=== PATIENT | male | born 1985 | race American Indian/Alaskan Native ===

== ENCOUNTER 2017-03-22 15:11 | Observation (INO) | payer OTHER ==
[2017-03-22 15:19] VITALS: RESP 20
[2017-03-22] MEDS ORDERED: Sodium Chloride 0.9% 1,000 ML IV ONE ×2 (15:24→16:20)
[2017-03-22] MEDS ORDERED: Aluminum Hydroxide/Magnesium Hydroxide Susp (30 mL) PO STA (15:24)
--- NOTE | 2017-03-22 15:31 | C.PDOC ---
History Of Present Illness 32 y/o male presents to ED with complaint of diffuse abdominal pain, associated with vomiting, worsening for the last 3 days. Patient's fiance at bedside states he has had this pain "more often than not" for the last 9 years. Patients reports past diagnosis of gastritis. Denies any medications, other significant past medical history, or abdominal surgical history. Patient states he drinks alcohol 2x per week; fiance states he drinks up to a pint of alcohol at a time. Denies any other drug use. Time Seen by Provider: 03/22/17 15:13 Chief Complaint (Nursing): Abdominal Pain History Per: Patient, Family History/Exam Limitations: no limitations Onset/Duration Of Symptoms: Days Current Symptoms Are (Timing): Still Present Location Of Pain/Discomfort: Diffuse Quality Of Discomfort: "Pain" Associated Symptoms: Vomiting. denies: Fever, Diarrhea, Urinary Symptoms Recent travel outside of the [place]: No Past Medical History Reviewed: Historical Data, Nursing Documentation, Vital Signs Vital Signs: Last Vital Signs Temp 98.1 F 03/23/17 07:00 Pulse 68 03/23/17 07:00 Resp 20 03/23/17 07:00 BP 112/69 03/23/17 07:00 Pulse Ox 100 03/23/17 07:00 - Medical History PMH: Gastritis Family History: States: Unknown Family Hx - Social History Hx Alcohol Use: Yes Hx Substance Use: Yes - Immunization History Hx Tetanus Toxoid Vaccination: No Hx Influenza Vaccination: No Hx Pneumococcal Vaccination: No Review Of Systems Except As Marked, All Systems Reviewed And Found Negative. Constitutional: Negative for: Fever, Chills Cardiovascular: Negative for: Chest Pain Respiratory: Negative for: Cough, Shortness of Breath, Wheezing Gastrointestinal: Positive for: Vomiting, Abdominal Pain. Negative for: Diarrhea Skin: Negative for: Rash Physical Exam - Physical Exam Appears: Other (appears to be in pain, tearful) Skin: Warm, Dry Head: Atraumatic, Normacephalic Chest: Symmetrical Cardiovascular: Rhythm Regular Respiratory: Normal Breath Sounds, No Rales, No Rhonchi, No Wheezing Gastrointestinal/Abdominal: Soft, Tenderness (diffuse abdominal tenderness, nonfocal), No Guarding, No Rebound Back: Normal Inspection Extremity: Normal ROM, Capillary Refill (< 2 sec. ) Neurological/Psych: Oriented x3, Normal Speech, Normal Cognition ED Course And Treatment - Laboratory Results Result Diagrams: 03/23/17 07:31 03/23/17 07:31 O2 Sat by Pulse Oximetry: 99 (RA) Pulse Ox Interpretation: Normal - CT Scan/US CT Abdomen/Pelvis Other Rad Studies (CT/US): Read By Radiologist, Radiology Report Reviewed CT/US Interpretation: IMPRESSION: Examination limited due to paucity of intra- abdominal and intrapelvic fat as well as lack of oral contrast. The appendix is not definitively visualized. Thin caliber tubular air-filled structure partially imaged in the right lower quadrant presumed to reflect the appendix. If indeed this is the appendix it is within normal limits. Progress Note: Viscous lidocaine, Maalox, Pepcid, Toradol, Zofran, and IVFs ordered. Labs ordered/reviewed. Disposition - Disposition Disposition: HOSPITALIZED Disposition Time: 20:14 Condition: STABLE - Clinical Impression Clinical Impression: Abdominal pain, Nausea, Vomiting - Scribe Statement The provider has reviewed the documentation as recorded by the Balaji Harris Provider Scribe Attestation: All medical record entries made by the Balaji were at my direction and personally dictated by me. I have reviewed the chart and agree that the record accurately reflects my personal performance of the history, physical exam, medical decision making, and the department course for this patient. I have also personally directed, reviewed, and agree with the discharge instructions and disposition.
[2017-03-22] MEDS ORDERED: Sodium Chloride 0.9% 1,000 ML ONE ×2 (15:34→16:35)
[2017-03-22] MEDS ORDERED: Aluminum Hydroxide/Magnesium Hydroxide Susp (30 mL) ONE (15:34)
[2017-03-22 15:43] LABS: VENOUS BLOOD GAS PCO2 46 mmHg (40-60)
[2017-03-22 15:44] LABS: BASO % 0.7 % (0.0-2.0); EOS % 0.3 % (0.0-4.0); HEMATOCRIT 44.9 % (35.0-51.0); LYMPH # 1.4 K/uL (1.0-4.3); LYMPH % 21.5 % (20.0-40.0); MEAN CORPUSCULAR HGB CONC 33.4 g/dL (33.0-37.0); MEAN PLATELET VOLUME 7.3 fL (7.2-11.7); MONO # 0.7 K/uL (0.0-0.8); MONO % 10.8 % (0.0-10.0); NRBC % 0.1 % (0.0-2.0); RED CELL DISTRIBUTION WIDTH 13.7 % (11.5-14.5); WHITE BLOOD COUNT 6.5 K/uL (4.8-10.8)
[2017-03-22 15:51] LABS: CHLORIDE 98 mmol/L (98-107); SODIUM 136 mmol/L (132-148)
[2017-03-22 15:52] LABS: POTASSIUM 4.6 mmol/L (3.6-5.2)
[2017-03-22 15:53] LABS: GFR AFRICAN-AMERICAN > 60
[2017-03-22 15:54] LABS: ALB/GLOB RATIO 1.2 (1.0-2.1); ALKALINE PHOSPHATASE 76 U/L (38-126); ALT/SGPT 26 U/L (21-72); AST/SGOT 31 U/L (17-59); BILIRUBIN,TOTAL 0.7 mg/dL (0.2-1.3); BLOOD UREA NITROGEN 8 mg/dL (9-20); CALCIUM 9.4 mg/dl (8.6-10.4); CARBON DIOXIDE 28 mmol/L (22-30); GLUCOSE,RANDOM 120 mg/dL (75-110); TOTAL PROTEIN 8.4 g/dL (6.3-8.3)
[2017-03-22 15:55] LABS: ALCOHOL SERUM < 10 mg/dl (0-10)
[2017-03-22] MEDS ORDERED: DiphenhydrAMINE 50 mg/ml Inj IVP STA (16:20)
[2017-03-22] MEDS ORDERED: DiphenhydrAMINE 50 mg/ml Inj ONE (16:31)
[2017-03-22] MEDS ORDERED: Iohexol 350mg/ml 100 ML ONE (16:49)
[2017-03-22 17:23] LABS: RBC URINE 2 /hpf (0-3); URINE BACTERIA RARE (<OCC); URINE BILIRUBIN NEGATIVE (NEGATIVE); URINE BLOOD NEGATIVE (NEGATIVE); URINE COLOR Yellow (YELLOW); URINE GLUCOSE (UA) NORMAL (Normal); URINE KETONE TRACE mg/dL (NEGATIVE); URINE LEUKOCYTE ESTERASE NEG Leu/uL (Negative); URINE PROTEIN 1+ mg/dL (NEGATIVE); URINE UROBILINOGEN NORMAL mg/dL (0.2-1.0); WBC URINE 3 /hpf (0-5)
--- NOTE | 2017-03-22 17:56 | CT ---
PROCEDURE: CT Abdomen and Pelvis with contrast HISTORY: abdominal pain COMPARISON: None available. TECHNIQUE: Contrast dose: 100 mL Omnipaque 320 Radiation dose: Total exam DLP = 346.33 mGy-cm. This CT exam was performed using one or more of the following dose reduction techniques: Automated exposure control, adjustment of the mA and/or kV according to patient size, and/or use of iterative reconstruction technique. FINDINGS: LOWER THORAX: No visible consolidation, pleural effusion, or pneumothorax. Small hiatal hernia. LIVER: Unremarkable. GALLBLADDER AND BILE DUCTS: Unremarkable. PANCREAS: Unremarkable. SPLEEN: Unremarkable. ADRENALS: Unremarkable. KIDNEYS AND URETERS: The kidneys enhance symmetrically. No evidence of hydronephrosis or obstructing calculus. VASCULATURE: No aortic aneurysm. BOWEL: Stomach is nondistended. Lack of oral contrast limits evaluation for bowel pathology. Bowel loops appear within normal limits of caliber without evidence of obstruction. APPENDIX: The appendix is not definitively visualized. Thin caliber tubular air-filled structure partially imaged in the right lower quadrant presumed to reflect the appendix. If indeed this is the appendix it is within normal limits. PERITONEUM: No significant free fluid. No definite free air. LYMPH NODES: No bulky adenopathy. BLADDER: Decompressed urinary bladder precludes evaluation. REPRODUCTIVE: Unremarkable. BONES: Partially imaged left femur metallic hardware. No acute osseous abnormality is detected. OTHER FINDINGS: None. IMPRESSION: Examination limited due to paucity of intra-abdominal and intrapelvic fat as well as lack of oral contrast. The appendix is not definitively visualized. Thin caliber tubular air-filled structure partially imaged in the right lower quadrant presumed to reflect the appendix. If indeed this is the appendix it is within normal limits. Additional findings as above.
[2017-03-22] MEDS ORDERED: [UNRECOGNIZED DRUG - OTHER] IV SCH (21:45)
[2017-03-22] MEDS ORDERED: D5W IV SCH (21:45)
[2017-03-22] MEDS ORDERED: MULTIVITAMIN IV SCH (21:45)
[2017-03-22] MEDS ORDERED: POTASSIUM CH IV SCH (21:45)
--- NOTE | 2017-03-22 22:38 | CP.PCM.HP ---
<Jony Monroy - Last Filed: 03/22/17 22:29> History of Present Illness - History of Present Illness History of Present Illness: CC: "abdominal pain" 32 M with PMH of gastritis presents to [facility] ED with a complaint of intractable abdominal pain. Patient states he has had the pain for about 2 days now. Patient drank alcohol 3 days again but besides that has not done anything differently. Patient has had the pain in the past multiple times where he has [place] [facility] [place] Patient also had an episode 2 weeks but the pain was not as severe so he just waited until his symptoms resolved. Patient stated that this time the pain was a sudden onset and has gotten worse over the 2 days. Patient has associated nausea and vomiting. He rates the pain 10/10 in severity. He describes the pain as constant and sharp, diffusely located through his abdomen without radiation. Patient denies any specific exacerbating or alleviating factors. Patient does not follow with anyone as outpatient. He has not seen a Court [facility] [facility] in the past. He also has never had an EGD. Admits to nausea/vomiting, hematemesis, melena, hematochezia, decreased appetitie. Denies fever/chills, cp, SOB, palpitations, fatigue, wekaness, dizziness/lightheadedness, vertigo, syncope, change in stool, constipation, incontinence, urinary symptoms. PMD: None PMH: Gastritis Meds: Denies Allergy: Ibuprofen PSH: Denies Hosp: Denies FH: Gastritis Social: [place], smokes 1/2 pack per days for years, drinks 2 nights per week - amount varies, denies illicit drug use Present on Admission - Present on Admission Any Indicators Present on Admission: No History of DVT/PE: No History of Uncontrolled Diabetes: No Urinary Catheter: No Decubitus Ulcer Present: No Review of Systems - Review of Systems All systems: reviewed and no additional remarkable complaints except (as per HPI ) Past Patient History - Past Social History Smoking Status: Heavy Smoker > 10 Cigarettes Daily - GASTROINTESTINAL Hx Gastritis: Yes - PSYCHIATRIC Hx Substance Use: Yes Meds Allergies/Adverse Reactions: Allergies Allergy/AdvReac Type Severity Reaction Status Date / Time ibuprofen [From Motrin] Allergy Verified 03/22/17 15:26 Physical Exam - Constitutional Appears: No Acute Distress - Head Exam Head Exam: ATRAUMATIC, NORMOCEPHALIC - Eye Exam Eye Exam: EOMI, Normal appearance Pupil Exam: PERRL - ENT Exam ENT Exam: Mucous Membranes Dry - Neck Exam Neck exam: Positive for: Normal Inspection - Respiratory Exam Respiratory Exam: Clear to Auscultation Bilateral, NORMAL BREATHING PATTERN - Cardiovascular Exam Cardiovascular Exam: REGULAR RHYTHM, +S1, +S2 - GI/Abdominal Exam GI & Abdominal Exam: Normal Bowel Sounds, Soft, Tenderness (diffusely). absent : Distended, Firm, Guarding, Rebound - Extremities Exam Extremities exam: Positive for: normal capillary refill, pedal pulses present. Negative for: calf tenderness, pedal edema, tenderness - Back Exam Back exam: absent: CVA tenderness (L), CVA tenderness (R) - Neurological Exam Neurological exam: Alert, CN II-XII Intact, Oriented x3 - Psychiatric Exam Psychiatric exam: Anxious - Skin Skin Exam: Dry, Intact, Normal Color, Warm Results - Vital Signs Recent Vital Signs: Last Vital Signs Temp 98.3 F 03/22/17 21:12 Pulse 67 03/22/17 21:12 Resp 20 03/22/17 21:12 BP 120/87 03/22/17 21:12 Pulse Ox 99 03/22/17 21:12 - Labs Result Diagrams: 03/22/17 15:37 03/22/17 15:37 Assessment & Plan - Assessment and Plan (Free Text) Plan: 1. Gastritis Med/Surg NPO D5 1/2NS with KCL and MVM 125 cc/hr Protonix 40 mg IVP Q12H Sulcrafate 1 gm PO BID Zofran 4 mg IVP Q6H PRN FOBT I's & O's f/u daily labs 2. Prophylactic Measures Protonix 40 mg IVP Q12H SCDs <Zeferino Maxwell P - Last Filed: 03/27/17 19:42> Results - Vital Signs Recent Vital Signs: Last Vital Signs Temp 98.1 F 03/23/17 07:00 Pulse 68 03/23/17 07:00 Resp 20 03/23/17 07:00 BP 112/69 03/23/17 07:00 Pulse Ox 99 03/23/17 12:16 - Labs Result Diagrams: 03/23/17 07:31 03/23/17 07:31 Attending/Attestation - Attestation I have personally seen and examined this patient.: Yes I have fully participated in the care of the patient.: Yes I have reviewed all pertinent clinical information: Yes
[2017-03-23 07:43] LABS: BASO % 0.5 % (0.0-2.0); EOS % 0.3 % (0.0-4.0); HEMATOCRIT 38.5 % (35.0-51.0); LYMPH # 3.2 K/uL (1.0-4.3); LYMPH % 32.5 % (20.0-40.0); MEAN CELL VOLUME 89.6 fL (80.0-94.0); MEAN CORPUSCULAR HEMOGLOBIN 30.3 pg (27.0-31.0); MEAN CORPUSCULAR HGB CONC 33.9 g/dL (33.0-37.0); MEAN PLATELET VOLUME 7.9 fL (7.2-11.7); MONO # 1.2 K/uL (0.0-0.8); MONO % 12.1 % (0.0-10.0); RED CELL DISTRIBUTION WIDTH 13.5 % (11.5-14.5)
[2017-03-23 07:49] LABS: INR 1.2
[2017-03-23 07:55] LABS: WHITE BLOOD COUNT 9.9 K/uL (4.8-10.8)
[2017-03-23 08:14] LABS: CHLORIDE 102 mmol/L (98-107); POTASSIUM 3.4 mmol/L (3.6-5.2); SODIUM 136 mmol/L (132-148)
[2017-03-23 08:16] LABS: BILIRUBIN,TOTAL 0.7 mg/dL (0.2-1.3); GFR AFRICAN-AMERICAN > 60
[2017-03-23 08:17] LABS: ALB/GLOB RATIO 1.1 (1.0-2.1); ALKALINE PHOSPHATASE 62 U/L (38-126); ALT/SGPT 24 U/L (21-72); AST/SGOT 21 U/L (17-59); BLOOD UREA NITROGEN 6 mg/dL (9-20); CARBON DIOXIDE 26 mmol/L (22-30); GLUCOSE,RANDOM 91 mg/dL (75-110); PHOSPHOROUS 3.1 mg/dL (2.5-4.5); TOTAL PROTEIN 6.7 g/dL (6.3-8.3)
[2017-03-23 08:18] LABS: CALCIUM 8.4 mg/dl (8.6-10.4); MAGNESIUM 1.9 mg/dL (1.6-2.3)
[2017-03-23 08:24] VITALS: BP 112/69; PULSE 68; TEMP 98.1
--- NOTE | 2017-03-23 09:21 | CP.PCM.PN ---
Subjective - Date & Time of Evaluation Date of Evaluation: 03/23/17 Time of Evaluation: 09:00 - Subjective Subjective: Hospitalist Progress Note (Patient was seen and examined at 9:00 AM 356 A ) Admitted night of 03/22/17 for intractable abdominal pain. History of drinking 1 pint of Vodka twice a week and smoking 1/2 pack a day. He had 1 pint of Vodka roughly 3 days ago and then his abdominal pain generalized associated with nausea/vomiting started. This has been a similar pattern in the past and [place] [facility] [place] He does not have a PMD and has not been evaluated by GI in the past Currently upon ROS: NO more abdominal pain NO n/v and is requesting food NO bowel movement past few days as he has not eaten Exam: Totaly unremarkable CT Abdomen/Pelvis: unremarkable given that it is limited by lack of PO contrast Extensive conversation with patient concerning his alcohol and tobacco use and how it was likely causing inflammation of his GI tract causing his symptoms Patient will be given liquids now and then soft diet for lunch and if tolerated will discharge to home Dietary Consult for education on Gastritis Diet Explained he will need to follow up with the [facility] for coordination of his medical care and through them, GI evaluation. Oscar Mccoy, D.O. [phone] Objective - Vital Signs/Intake and Output Vital Signs (last 24 hours): Temp Pulse Resp BP Pulse Ox 98.1 F 68 20 112/69 100 03/23/17 07:00 03/23/17 07:00 03/23/17 07:00 03/23/17 07:00 03/23/17 07:00 Intake and Output: 03/23/17 03/23/17 06:59 18:59 Intake Total 650 Balance 650 - Medications Medications: Current Medications Multivitamins/Vitamin C 10 ml/Potassium Chloride/Dextrose/Sod Cl 1,010 mls @ 125 mls/hr IV .BY DURATION [facility] Last Admin: 03/23/17 02:37 Dose: 125 mls/hr Potassium Chloride/Dextrose/Sod Cl (Potassium Chl 20 Meq In D5-1/2ns) 1,000 mls @ 125 mls/hr IV .BY DURATION [facility] Last Admin: 03/23/17 05:49 Dose: Not Given Potassium Chloride/Dextrose/Sod Cl (Potassium Chl 20 Meq In D5-1/2ns) 1,000 mls @ 125 mls/hr IV .BY DURATION [facility] Ondansetron HCl (Zofran Inj) 4 mg IVP Q6 PRN PRN Reason: Nausea/Vomiting Pantoprazole Sodium (Protonix Inj) 40 mg IVP Q12H [facility] Last Admin: 03/22/17 21:57 Dose: 40 mg Sucralfate (Carafate Tab) 1 gm PO BID [facility] Last Admin: 03/22/17 21:57 Dose: 1 gm - Labs Labs: 03/23/17 07:31 03/23/17 07:31 PT 13.4 SECONDS (9.7-12.2) H 03/23/17 07:31 INR 1.2 03/23/17 07:31 APTT 28 SECONDS (21-34) 03/23/17 07:31
[2017-03-23] MEDS ORDERED: Potassium Chloride 20 mEq ER Tab PO ONE (09:24)
[2017-03-23 12:16] VITALS: O2SAT 99
--- NOTE | 2017-03-23 15:01 | CP.PCM.DIS ---
<Vincent Segura - Last Filed: 03/23/17 15:11> Provider - Provider Date of Admission: 03/22/17 20:28 Attending physician: Zeferino Maxwell MD Consults: 1. Dietitian consult. Time Spent in preparation of Discharge (in minutes): 45 Hospital Course - Lab Results Lab Results: Most Recent Lab Values WBC 9.9 K/uL (4.8-10.8) D 03/23/17 07:31 RBC 4.30 Mil/uL (4.40-5.90) L 03/23/17 07:31 Hgb 13.0 g/dL (12.0-18.0) D 03/23/17 07:31 Hct 38.5 % (35.0-51.0) 03/23/17 07:31 MCV 89.6 fL (80.0-94.0) 03/23/17 07:31 MCH 30.3 pg (27.0-31.0) 03/23/17 07:31 MCHC 33.9 g/dL (33.0-37.0) 03/23/17 07:31 RDW 13.5 % (11.5-14.5) 03/23/17 07:31 Plt Count 341 K/uL (130-400) 03/23/17 07:31 MPV 7.9 fL (7.2-11.7) 03/23/17 07:31 Neut % (Auto) 54.6 % (50.0-75.0) 03/23/17 07:31 Lymph % (Auto) 32.5 % (20.0-40.0) 03/23/17 07:31 Logan % (Auto) 12.1 % (0.0-10.0) H 03/23/17 07:31 Eos % (Auto) 0.3 % (0.0-4.0) 03/23/17 07:31 Baso % (Auto) 0.5 % (0.0-2.0) 03/23/17 07:31 Neut # 5.4 K/uL (1.8-7.0) 03/23/17 07:31 Lymph # 3.2 K/uL (1.0-4.3) 03/23/17 07:31 Logan # 1.2 K/uL (0.0-0.8) H 03/23/17 07:31 Eos # 0.0 K/uL (0.0-0.7) 03/23/17 07:31 Baso # 0.0 K/uL (0.0-0.2) 03/23/17 07:31 PT 13.4 SECONDS (9.7-12.2) H 03/23/17 07:31 INR 1.2 03/23/17 07:31 APTT 28 SECONDS (21-34) 03/23/17 07:31 pO2 20 mm/Hg (30-55) L 03/22/17 15:40 VBG pH 7.40 (7.32-7.43) 03/22/17 15:40 VBG pCO2 46 mmHg (40-60) 03/22/17 15:40 VBG HCO3 25.5 mmol/L 03/22/17 15:40 VBG Total CO2 29.9 mmol/L (22-28) H 03/22/17 15:40 VBG O2 Sat (Calc) 33.1 % (40-65) L 03/22/17 15:40 VBG Base Excess 3.0 mmol/L (0.0-2.0) H 03/22/17 15:40 VBG Potassium 4.4 mmol/L (3.6-5.2) 03/22/17 15:40 Sodium 138.0 mmol/l (132-148) 03/22/17 15:40 Chloride 104.0 mmol/L (98-107) 03/22/17 15:40 Glucose 111 mg/dl (75-110) H 03/22/17 15:40 Lactate 1.6 mmol/L (0.7-2.1) 03/22/17 15:40 Sodium 136 mmol/L (132-148) 03/23/17 07:31 Potassium 3.4 mmol/L (3.6-5.2) L 03/23/17 07:31 Chloride 102 mmol/L (98-107) 03/23/17 07:31 Carbon Dioxide 26 mmol/L (22-30) 03/23/17 07:31 Anion Gap 11 (10-20) 03/23/17 07:31 BUN 6 mg/dL (9-20) L 03/23/17 07:31 Creatinine 0.8 MG/DL (0.8-1.5) 03/23/17 07:31 Est GFR ( Amer) > 60 03/23/17 07:31 Est GFR (Non-Af Amer) > 60 03/23/17 07:31 Random Glucose 91 mg/dL (75-110) 03/23/17 07:31 Calcium 8.4 mg/dl (8.6-10.4) L 03/23/17 07:31 Phosphorus 3.1 mg/dL (2.5-4.5) 03/23/17 07:31 Magnesium 1.9 mg/dL (1.6-2.3) 03/23/17 07:31 Total Bilirubin 0.7 mg/dL (0.2-1.3) 03/23/17 07:31 AST 21 U/L (17-59) 03/23/17 07:31 ALT 24 U/L (21-72) 03/23/17 07:31 Alkaline Phosphatase 62 U/L (38-126) 03/23/17 07:31 Total Protein 6.7 g/dL (6.3-8.3) 03/23/17 07:31 Albumin 3.6 g/dL (3.5-5.0) 03/23/17 07:31 Globulin 3.1 gm/dL (2.2-3.9) 03/23/17 07:31 Albumin/Globulin Ratio 1.1 (1.0-2.1) 03/23/17 07:31 Lipase 35 U/L (23-300) 03/22/17 15:37 Venous Blood Potassium 4.4 mmol/L (3.6-5.2) 03/22/17 15:40 Urine Color Yellow (YELLOW) 03/22/17 17:05 Urine Clarity Hazy (Clear) 03/22/17 17:05 Urine pH 6.0 (5.0-8.0) 03/22/17 17:05 Ur Specific Palmer 1.017 (1.003-1.030) 03/22/17 17:05 Urine Protein 1+ mg/dL (NEGATIVE) H 03/22/17 17:05 Urine Glucose (UA) Normal mg/dL (Normal) 03/22/17 17:05 Urine Ketones Trace mg/dL (NEGATIVE) 03/22/17 17:05 Urine Blood Negative (NEGATIVE) 03/22/17 17:05 Urine Nitrate Negative (NEGATIVE) 03/22/17 17:05 Urine Bilirubin Negative (NEGATIVE) 03/22/17 17:05 Urine Urobilinogen Normal mg/dL (0.2-1.0) 03/22/17 17:05 Ur Leukocyte Esterase Neg Jose/uL (Negative) 03/22/17 17:05 Urine WBC (Auto) 3 /hpf (0-5) 03/22/17 17:05 Urine RBC (Auto) 2 /hpf (0-3) 03/22/17 17:05 Urine Bacteria Rare (<OCC) 03/22/17 17:05 Hyaline Casts 3-5 /lpf (0-2) H 03/22/17 17:05 Urine Opiates Screen Negative (NEGATIVE) 03/22/17 17:05 Urine Methadone Screen Negative (NEGATIVE) 03/22/17 17:05 Ur Barbiturates Screen Negative (NEGATIVE) 03/22/17 17:05 Ur Phencyclidine Scrn Positive (NEGATIVE) 03/22/17 17:05 Ur Amphetamines Screen Negative (NEGATIVE) 03/22/17 17:05 U Benzodiazepines Scrn Negative (NEGATIVE) 03/22/17 17:05 U Oth Cocaine Metabols Negative (NEGATIVE) 03/22/17 17:05 U Cannabinoids Screen Positive (NEGATIVE) 03/22/17 17:05 Alcohol, Quantitative < 10 mg/dl (0-10) 03/22/17 15:37 - Hospital Course Hospital Course: Attending: Dr. Fauzia Mccoy Admit date: 03-22-17 DC date: 03-23-17 Consults: Dietitian Procedures none Complications none Discharge dx 1. Gastritis Stable upon discharge HPI: see H/p Lab : see lab data section Hospital course. This is a 32 yo male with no reported past medical hx presenting with 1. Gastritis -admitted to Med/Surg - made NPO>> transitioned to diet>>> tolerating well with no complaints -initially put on D5 1/2NS with KCL and MVM 125 cc/hr - Protonix 40 mg IVP Q12H - Sulcrafate 1 gm PO BID - Zofran 4 mg IVP Q6H PRN - FOBT was ordered - I's & O's -CT scan was ordered, which was unremarkable. 2. Prophylactic Measures Protonix 40 mg IVP Q12H SCDs On day of discharge, pt was feeling much better with no complaints and completely tolerating diet. Discharge instructions 1. Pt medically stable for discharge. Pt to fu in [facility]. Pt told to f/u. Number is [phone]. Pt should return if condition worsens. Pt counseled on gastritis diet. Discharge meds: 1. protonix 40 daily - Date & Time of H&P Date of H&P: 03/22/17 Time of H&P: 22:29 Discharge Exam - Head Exam Head Exam: ATRAUMATIC, NORMAL INSPECTION, NORMOCEPHALIC - Eye Exam Eye Exam: EOMI - ENT Exam ENT Exam: Mucous Membranes Moist - Neck Exam Neck exam: Full Rom, Normal Inspection - Respiratory Exam Respiratory Exam: NORMAL BREATHING PATTERN, UNREMARKABLE - Cardiovascular Exam Cardiovascular Exam: +S1, +S2 - GI/Abdominal Exam GI & Abdominal Exam: Normal Bowel Sounds, Unremarkable - Extremities Exam Extremities exam: full ROM, normal inspection - Neurological Exam Neurological exam: Alert, Oriented x3 - Psychiatric Exam Psychiatric exam: Normal Affect, Normal Mood - Skin Skin Exam: Dry, Intact, Normal Color, Warm Discharge Plan - Discharge Medications Prescriptions: Pantoprazole [Protonix] 40 mg PO DAILY #30 ect - Follow Up Plan Condition: STABLE Disposition: HOME/ ROUTINE Instructions: Pantoprazole (By mouth), Gastritis (DC), Soft Diet (DC), Acute Abdominal Pain (DC), Acute Abdominal Pain (GEN) Additional Instructions: Pt is medically stable for discharge. pt need to follow up in [facility]: [address] [place] [address] [place] : [phone]. If no answer, esmer leave name and number. follow up with Darren Lozano Referrals: Vincent Segura DO [[facility]] - Clinic,Med Surg [Non-Staff] - <Oscar Mccoy - Last Filed: 03/23/17 21:37> Provider - Provider Date of Admission: 03/22/17 20:28 Attending physician: Zeferino Maxwell MD Hospital Course - Lab Results Lab Results: Most Recent Lab Values WBC 9.9 K/uL (4.8-10.8) D 03/23/17 07:31 RBC 4.30 Mil/uL (4.40-5.90) L 03/23/17 07:31 Hgb 13.0 g/dL (12.0-18.0) D 03/23/17 07:31 Hct 38.5 % (35.0-51.0) 03/23/17 07:31 MCV 89.6 fL (80.0-94.0) 03/23/17 07:31 MCH 30.3 pg (27.0-31.0) 03/23/17 07:31 MCHC 33.9 g/dL (33.0-37.0) 03/23/17 07:31 RDW 13.5 % (11.5-14.5) 03/23/17 07:31 Plt Count 341 K/uL (130-400) 03/23/17 07:31 MPV 7.9 fL (7.2-11.7) 03/23/17 07:31 Neut % (Auto) 54.6 % (50.0-75.0) 03/23/17 07:31 Lymph % (Auto) 32.5 % (20.0-40.0) 03/23/17 07:31 Logan % (Auto) 12.1 % (0.0-10.0) H 03/23/17 07:31 Eos % (Auto) 0.3 % (0.0-4.0) 03/23/17 07:31 Baso % (Auto) 0.5 % (0.0-2.0) 03/23/17 07:31 Neut # 5.4 K/uL (1.8-7.0) 03/23/17 07:31 Lymph # 3.2 K/uL (1.0-4.3) 03/23/17 07:31 Logan # 1.2 K/uL (0.0-0.8) H 03/23/17 07:31 Eos # 0.0 K/uL (0.0-0.7) 03/23/17 07:31 Baso # 0.0 K/uL (0.0-0.2) 03/23/17 07:31 PT 13.4 SECONDS (9.7-12.2) H 03/23/17 07:31 INR 1.2 03/23/17 07:31 APTT 28 SECONDS (21-34) 03/23/17 07:31 pO2 20 mm/Hg (30-55) L 03/22/17 15:40 VBG pH 7.40 (7.32-7.43) 03/22/17 15:40 VBG pCO2 46 mmHg (40-60) 03/22/17 15:40 VBG HCO3 25.5 mmol/L 03/22/17 15:40 VBG Total CO2 29.9 mmol/L (22-28) H 03/22/17 15:40 VBG O2 Sat (Calc) 33.1 % (40-65) L 03/22/17 15:40 VBG Base Excess 3.0 mmol/L (0.0-2.0) H 03/22/17 15:40 VBG Potassium 4.4 mmol/L (3.6-5.2) 03/22/17 15:40 Sodium 138.0 mmol/l (132-148) 03/22/17 15:40 Chloride 104.0 mmol/L (98-107) 03/22/17 15:40 Glucose 111 mg/dl (75-110) H 03/22/17 15:40 Lactate 1.6 mmol/L (0.7-2.1) 03/22/17 15:40 Sodium 136 mmol/L (132-148) 03/23/17 07:31 Potassium 3.4 mmol/L (3.6-5.2) L 03/23/17 07:31 Chloride 102 mmol/L (98-107) 03/23/17 07:31 Carbon Dioxide 26 mmol/L (22-30) 03/23/17 07:31 Anion Gap 11 (10-20) 03/23/17 07:31 BUN 6 mg/dL (9-20) L 03/23/17 07:31 Creatinine 0.8 MG/DL (0.8-1.5) 03/23/17 07:31 Est GFR ( Amer) > 60 03/23/17 07:31 Est GFR (Non-Af Amer) > 60 03/23/17 07:31 Random Glucose 91 mg/dL (75-110) 03/23/17 07:31 Calcium 8.4 mg/dl (8.6-10.4) L 03/23/17 07:31 Phosphorus 3.1 mg/dL (2.5-4.5) 03/23/17 07:31 Magnesium 1.9 mg/dL (1.6-2.3) 03/23/17 07:31 Total Bilirubin 0.7 mg/dL (0.2-1.3) 03/23/17 07:31 AST 21 U/L (17-59) 03/23/17 07:31 ALT 24 U/L (21-72) 03/23/17 07:31 Alkaline Phosphatase 62 U/L (38-126) 03/23/17 07:31 Total Protein 6.7 g/dL (6.3-8.3) 03/23/17 07:31 Albumin 3.6 g/dL (3.5-5.0) 03/23/17 07:31 Globulin 3.1 gm/dL (2.2-3.9) 03/23/17 07:31 Albumin/Globulin Ratio 1.1 (1.0-2.1) 03/23/17 07:31 Lipase 35 U/L (23-300) 03/22/17 15:37 Venous Blood Potassium 4.4 mmol/L (3.6-5.2) 03/22/17 15:40 Urine Color Yellow (YELLOW) 03/22/17 17:05 Urine Clarity Hazy (Clear) 03/22/17 17:05 Urine pH 6.0 (5.0-8.0) 03/22/17 17:05 Ur Specific Palmer 1.017 (1.003-1.030) 03/22/17 17:05 Urine Protein 1+ mg/dL (NEGATIVE) H 03/22/17 17:05 Urine Glucose (UA) Normal mg/dL (Normal) 03/22/17 17:05 Urine Ketones Trace mg/dL (NEGATIVE) 03/22/17 17:05 Urine Blood Negative (NEGATIVE) 03/22/17 17:05 Urine Nitrate Negative (NEGATIVE) 03/22/17 17:05 Urine Bilirubin Negative (NEGATIVE) 03/22/17 17:05 Urine Urobilinogen Normal mg/dL (0.2-1.0) 03/22/17 17:05 Ur Leukocyte Esterase Neg Jose/uL (Negative) 03/22/17 17:05 Urine WBC (Auto) 3 /hpf (0-5) 03/22/17 17:05 Urine RBC (Auto) 2 /hpf (0-3) 03/22/17 17:05 Urine Bacteria Rare (<OCC) 03/22/17 17:05 Hyaline Casts 3-5 /lpf (0-2) H 03/22/17 17:05 Urine Opiates Screen Negative (NEGATIVE) 03/22/17 17:05 Urine Methadone Screen Negative (NEGATIVE) 03/22/17 17:05 Ur Barbiturates Screen Negative (NEGATIVE) 03/22/17 17:05 Ur Phencyclidine Scrn Positive (NEGATIVE) 03/22/17 17:05 Ur Amphetamines Screen Negative (NEGATIVE) 03/22/17 17:05 U Benzodiazepines Scrn Negative (NEGATIVE) 03/22/17 17:05 U Oth Cocaine Metabols Negative (NEGATIVE) 03/22/17 17:05 U Cannabinoids Screen Positive (NEGATIVE) 03/22/17 17:05 Alcohol, Quantitative < 10 mg/dl (0-10) 03/22/17 15:37 Attending/Attestation - Attestation I have personally seen and examined this patient.: Yes I have fully participated in the care of the patient.: Yes I have reviewed all pertinent clinical information, including history, physical exam and plan: Yes
== END 2017-03-23 16:53 | disposition home or self-care (01) ==
LOC: C.ER 15:11 → C.9E 20:28 → C.3T 21:01
PROVIDERS: ADMIT Internal Medicine; ATTEND Internal Medicine
DX: K29.70 Gastritis, unspecified, without bleeding (principal); F17.200 Nicotine dependence, unspecified, uncomplicated
CPT/HCPCS: 36415; 74177; 80053; 80320; 80324; 80345; 80346; 80349; 80353; 80358; 80361; 81001; 82803; 83690; 83735; 83992; 84100; 85025; 85610; 85730; 96361; 96374; 96375; 99285; C9113; G0378; J0131; J1200; J1885; J2270; J2405; J2765; J7040; Q9967

== ENCOUNTER 2018-02-12 09:34 | Emergency (ER) | payer OTHER ==
[2018-02-12 09:48] VITALS: BMI 20.7
[2018-02-12 09:53] VITALS: RESP 18; TEMP 98
[2018-02-12] MEDS ORDERED: Alum-Mag Hydrox-Simethicone Susp (30 mL) PO STA (10:13)
--- NOTE | 2018-02-12 10:18 | C.PDOC ---
History Of Present Illness 32 y/o M c PMHx gastritis p/w abdominal pain x 2 days. Patient states pain feels like gas, associated with NBNB vomiting, worse after eating, associated with loose stools that are grossly bloody x 2 years. Patient states he has had this pain many times before and was admitted to this hospital for it once before. CT at that time was unremarkable. He was told he likely has gastritis and was discharged on Protonix, but he never followed up for further evaluation and has not been on any medication. He denies chest pain, palpitations, dyspnea , syncope. Time Seen by Provider: 02/12/18 09:51 Chief Complaint (Nursing): Abdominal Pain Past Medical History Vital Signs: Last Vital Signs Temp 98 F 02/12/18 09:48 Pulse 89 02/12/18 09:48 Resp 18 02/12/18 09:48 BP 115/76 02/12/18 09:48 Pulse Ox 99 02/12/18 10:19 - Medical History PMH: Gastritis Family History: States: No Known Family Hx - Social History Hx Alcohol Use: Yes Hx Substance Use: Yes (marijuana) - Immunization History Hx Tetanus Toxoid Vaccination: No Hx Influenza Vaccination: No Hx Pneumococcal Vaccination: No Review Of Systems Except As Marked, All Systems Reviewed And Found Negative. Constitutional: Negative for: Fever Respiratory: Negative for: Shortness of Breath Physical Exam - Physical Exam Additional Physical Exam Comments: Gen: NAD Head: NC/AT Eyes: No scleral icterus ENT: MMM Neck: Supple Chest: No tenderness CV: Regular rate Lungs: CTA b/l Abd: Soft, epigastric tenderness, no guarding Back: No CVA tenderness Skin: No rash Neuro: Alert, no focal deficit ED Course And Treatment - Laboratory Results Result Diagrams: 02/12/18 10:24 02/12/18 10:24 O2 Sat by Pulse Oximetry: 99 Medical Decision Making Medical Decision Making: Patient with chronic complaints today. Patient will require follow up for further evaluation. I encouraged patient to follow up. Presently, will check labs for any acute abnormalities, no further Emergency Department imaging indicated in this patient without abdominal guarding or rigidity. Disposition - Disposition Referrals: [facility] [Outside] Disposition: HOME/ ROUTINE Disposition Time: 10:58 Condition: STABLE Prescriptions: Pantoprazole Sodium [Protonix] 40 mg PO DAILY #14 ect Instructions: Acute Abdomen (Belly Pain), Adult (DC) Forms: [facility] (Malawian) - Clinical Impression Clinical Impression: Abdominal pain
[2018-02-12] MEDS ORDERED: Alum-Mag Hydrox-Simethicone Susp (30 mL) ONE (10:25)
[2018-02-12 10:29] LABS: BASO # 0.1 K/uL (0.0-0.2); BASO % 1.6 % (0.0-2.0); EOS # 0.1 K/uL (0.0-0.7); EOS % 0.7 % (0.0-4.0); HEMOGLOBIN 13.5 g/dL (12.0-18.0); LYMPH # 2.2 K/uL (1.0-4.3); LYMPH % 25.6 % (20.0-40.0); MEAN CELL VOLUME 89.1 fL (80.0-94.0); MEAN CORPUSCULAR HEMOGLOBIN 30.5 pg (27.0-31.0); MEAN CORPUSCULAR HGB CONC 34.3 g/dL (33.0-37.0); MONO # 0.6 K/uL (0.0-0.8); MONO % 7.2 % (0.0-10.0); NEUT # 5.6 K/uL (1.8-7.0); NEUT % 64.9 % (50.0-75.0); NRBC % 0.1 % (0.0-2.0); RBC 4.41 Mil/uL (4.40-5.90); RED CELL DISTRIBUTION WIDTH 14.6 % (11.5-14.5); WHITE BLOOD COUNT 8.6 K/uL (4.8-10.8)
[2018-02-12 10:49] LABS: URINE BILIRUBIN NEGATIVE (NEGATIVE); URINE BLOOD NEGATIVE (NEGATIVE); URINE CLARITY Clear (Clear); URINE COLOR Straw (YELLOW); URINE GLUCOSE (UA) NORMAL (Normal); URINE LEUKOCYTE ESTERASE NEG Leu/uL (Negative); URINE PROTEIN NEGATIVE (NEGATIVE); URINE UROBILINOGEN NORMAL mg/dL (0.2-1.0)
[2018-02-12 10:54] LABS: ALB/GLOB RATIO 1.1 (1.0-2.1); ALBUMIN 4.3 g/dL (3.5-5.0); ALT/SGPT 17 U/L (21-72); AST/SGOT 25 U/L (17-59); BLOOD UREA NITROGEN 8 mg/dL (9-20); CALCIUM 8.9 mg/dl (8.6-10.4); GFR AFRICAN-AMERICAN > 60; GFR NON-AFRICAN AMERICAN > 60; LIPASE 236 U/L (23-300)
[2018-02-12 11:36] VITALS: BP 120/70; PULSE 85; O2SAT 98
== END 2018-02-12 11:05 | disposition home or self-care (01) ==
LOC: C.ER 09:34
DX: R10.9 Unspecified abdominal pain (principal)
CPT/HCPCS: 80053; 81001; 83690; 85025; 96374; 96375; 99285; J2405

== ENCOUNTER 2018-04-18 03:42 | Emergency (ER) | payer OTHER ==
[2018-04-18 03:43] VITALS: BMI 20.7
[2018-04-18 03:57] VITALS: RESP 20
[2018-04-18] MEDS ORDERED: Lidocaine 2% MPF (5 ml) Inj ONE (04:13)
--- NOTE | 2018-04-18 04:45 | C.PDOC ---
History Of Present Illness 33 year old male presents to the ED for evaluation for an abscess to his right buttock for the past 3 weeks. Patient states his pain worsened yesterday [facility] promoted the visit today. Patient denies fever, chill, nausea, vomit, diarrhea, drainage. Time Seen by Provider: 04/18/18 03:59 Chief Complaint (Nursing): Abnormal Skin Integrity History Per: Patient History/Exam Limitations: no limitations Onset/Duration Of Symptoms: Days Current Symptoms Are (Timing): Still Present Location Of Injury: Right: Buttock Quality Of Symptoms: Painful, Swollen Recent travel outside of the [place]: No Additional History Per: Patient Past Medical History Reviewed: Historical Data, Nursing Documentation, Vital Signs Vital Signs: Last Vital Signs Temp 98 F 04/18/18 03:51 Pulse 80 04/18/18 03:51 Resp 20 04/18/18 03:51 BP 138/88 04/18/18 03:51 Pulse Ox 99 04/18/18 03:51 - Medical History PMH: Gastritis Surgical History: No Surg Hx Family History: States: Unknown Family Hx - Social History Hx Alcohol Use: Yes Hx Substance Use: Yes (marijuana) - Immunization History Hx Tetanus Toxoid Vaccination: No Hx Influenza Vaccination: No Hx Pneumococcal Vaccination: No Review Of Systems Constitutional: Negative for: Fever, Chills Cardiovascular: Negative for: Chest Pain Respiratory: Negative for: Shortness of Breath Gastrointestinal: Negative for: Nausea, Vomiting Skin: Positive for: Other (abscess) Neurological: Negative for: Weakness, Numbness Physical Exam - Physical Exam Appears: Non-toxic, No Acute Distress Skin: Normal Color, Warm, Dry Head: Atraumatic, Normacephalic Eye(s): bilateral: Normal Inspection Oral Mucosa: Moist Neck: Normal ROM, Supple Chest: Symmetrical Cardiovascular: Rhythm Regular Respiratory: Normal Breath Sounds, No Rales, No Rhonchi, No Wheezing Gastrointestinal/Abdominal: Soft, No Tenderness, No Guarding, No Rebound Back: Other (large 4x5 cm tender fluctuance mass to the right buttock with no perianal involvement ) Extremity: Normal ROM, No Tenderness, No Swelling Neurological/Psych: Oriented x3, Normal Speech Gait: Steady ED Course And Treatment O2 Sat by Pulse Oximetry: 99 (ON RA) Pulse Ox Interpretation: Normal Progress Note: Plan: - Motrin 600 mg PO - Incision & Drainage Of Abscess Anesthesia: Lidocaine 2% Used During Procedure: Continuous Pulse Oximetry Prep Used: Sterile Water, Betadine Procedure: Incised W/Scalpel Blade#:, Drained Pus (moderate), Packed W/Gauze Disposition - Disposition - PA / SENIOR NET WEB DEVELOPER / Resident Statement MD/ has reviewed & agrees with the documentation as recorded. - Scribe Statement The provider has reviewed the documentation as recorded by the Scribe Manuel Dobbins All medical record entries made by the Scribe were at my direction and personally dictated by me. I have reviewed the chart and agree that the record accurately reflects my personal performance of the history, physical exam, medical decision making, and the department course for this patient. I have also personally directed, reviewed, and agree with the discharge instructions and disposition.
--- NOTE | 2018-04-18 04:50 | C.PDOC ---
History Of Present Illness 33 year old male presents to the ED for evaluation for an abscess to his right buttock for the past 3 weeks. Patient states his pain worsened yesterday which prompted the visit today. Patient denies fever, chills, nausea, vomiting, drainage from wound Time Seen by Provider: 04/18/18 03:59 Chief Complaint (Nursing): Abnormal Skin Integrity History Per: Patient History/Exam Limitations: no limitations Onset/Duration Of Symptoms: Days Current Symptoms Are (Timing): Still Present Location Of Injury: Right: Buttock Quality Of Symptoms: Painful, Swollen Recent travel outside of the [place]: No Additional History Per: Patient Past Medical History Reviewed: Historical Data, Nursing Documentation, Vital Signs Vital Signs: Last Vital Signs Temp 98 F 04/18/18 03:51 Pulse 80 04/18/18 03:51 Resp 20 04/18/18 03:51 BP 138/88 04/18/18 03:51 Pulse Ox 99 04/18/18 05:04 - Medical History PMH: Gastritis Surgical History: No Surg Hx Family History: States: Unknown Family Hx - Social History Hx Alcohol Use: Yes Hx Substance Use: Yes (marijuana) - Immunization History Hx Tetanus Toxoid Vaccination: No Hx Influenza Vaccination: No Hx Pneumococcal Vaccination: No Review Of Systems Constitutional: Negative for: Fever, Chills Cardiovascular: Negative for: Chest Pain Respiratory: Negative for: Shortness of Breath Gastrointestinal: Negative for: Nausea, Vomiting, Abdominal Pain Skin: Positive for: Other (abscess) Physical Exam - Physical Exam Appears: Non-toxic, No Acute Distress Skin: Normal Color, Warm, Dry Head: Atraumatic Eye(s): bilateral: Normal Inspection, PERRL Oral Mucosa: Moist Respiratory: Normal Breath Sounds, No Rales, No Rhonchi, No Wheezing Gastrointestinal/Abdominal: Soft, No Tenderness, No Guarding, No Rebound Rectal: No Tenderness, No Other (mass) Back: Other (large 4x5 cm tender fluctuant mass to the right buttock with no perianal involvement, no active draining) Extremity: Normal ROM Neurological/Psych: Oriented x3, Normal Speech Gait: Steady ED Course And Treatment O2 Sat by Pulse Oximetry: 99 (On RA) Pulse Ox Interpretation: Normal Progress Note: Plan: - Motrin 600 mg PO Reevaluation Time: 05:08 Reassessment Condition: Improved - Incision & Drainage Of Abscess Anesthesia: Lidocaine 2% Prep Used: Sterile Water, Betadine Procedure: Incised W/Scalpel Blade#:, Drained Pus (moderate), Irrigated Cavity W /Saline, Probed To Break Up Loculations, Packed W/Gauze (dressing applied. Pt tolerated well) Disposition Counseled Patient/Family Regarding: Diagnosis, Need For Followup - Disposition Referrals: [facility] [Outside] Disposition: HOME/ ROUTINE Disposition Time: 05:00 Condition: STABLE Additional Instructions: Please follow up in 2 days in clinic or ED for wound check Take meds as directed Return to ER if worse Prescriptions: Cephalexin [cephalexin] 1,000 mg PO BID #20 cap Ibuprofen [Motrin] 600 mg PO Q6H #24 tab Sulfamethoxazole/Trimethoprim [Bactrim DS 800 mg-160 mg] 1 tab PO BID #14 tab Instructions: Abscess Incision and Drainage, Abscess Drainage, Percutaneous ( Fluoroscopic, Ultrasonic, or CT Guidance) Forms: [employer] (Greek) - Clinical Impression Clinical Impression: Abscess of buttock, right - PA / CUSTOMER MANAGEMENT SPECIALIST / Resident Statement MD/DO has reviewed & agrees with the documentation as recorded. - Scribe Statement The provider has reviewed the documentation as recorded by the Scribe Manuel Dobbins All medical record entries made by the Miladysibshruthi were at my direction and personally dictated by me. I have reviewed the chart and agree that the record accurately reflects my personal performance of the history, physical exam, medical decision making, and the department course for this patient. I have also personally directed, reviewed, and agree with the discharge instructions and disposition.
[2018-04-18 06:02] VITALS: BP 100/61; PULSE 67; TEMP 98.2; O2SAT 98
== END 2018-04-18 06:18 | disposition home or self-care (01) ==
LOC: C.ER 03:42
DX: L02.31 Cutaneous abscess of buttock (principal)